=== PATIENT | female | born 1995 | race Caucasian/White ===

== ENCOUNTER 2017-01-13 21:36 | Emergency (ER) | payer SELFPAY ==
[2017-01-13] MEDS ORDERED: Ondansetron ODT 4 MG TAB ONE (23:17)
[2017-01-13 23:44] LABS: Blood, Urine Large (Negative); Clarity Cloudy (Clear); Glucose, Urine (Dipstick) Negative (Negative); Leukocyte Negative (Negative); Nitrite Negative (Negative); Protein, Urine (Dipstick) 100 mg/dL (Neg-Trace)
[2017-01-13 23:45] LABS: Bilirubin Negative (Negative); Pregnancy Test - Urine (BHCG) Negative (Negative); Specific Gravity, Urine 1.035 (1.002-1.036); pH, Urine Greater/Equal 9.0 (5.0-9.0)
[2017-01-13 23:46] LABS: Pregu Control Background? CLEAR/WHITE (CLR/WHITE); Pregu Control Bar Appear? YES (CONTROL BAR); Specific Gravity 1.035 (1.002-1.036)
[2017-01-13 23:52] LABS: Bacteria/HPF 1+ HPF (None Seen); Other Microscopic Description 1+ MUCUS; RBC/HPF GREATER THAN 50-TNTC HPF (0-3); Squamous Epithelial 0-3 HPF (0-3); WBC/HPF 0-3 HPF (0-3)
[2017-01-14] MEDS ORDERED: Ondansetron HCl/PF 4 MG/2 ML Vial ONE (00:25)
[2017-01-14 01:07] LABS: #Basophils 0.1 thou/uL (0.0-0.2); #Lymphocytes 1.3 thou/uL (1.20-3.40); #Monocytes 0.5 thou/uL (0.11-0.59); #Neutrophils 4.5 thou/uL (1.40-6.50); %Basophils 0.9 % (0.0-1.0); %Eosinophils 0.4 % (0.0-10.0); %Lymphocytes 20.4 % (21.0-51.0); %Neutrophils 70.3 % (42.0-75.0); Hemoglobin 13.1 g/dL (12.0-16.0); Mean Corpuscular HGB CONC 31.9 g/dL (32.0-36.0); Mean Corpuscular Hemoglobin 25.7 pg (27.0-31.0); Mean Corpuscular Volume 80.5 fl (81.0-99.0); Mean Platelet Volume 6.7 fL (7.4-10.4); Platelet Count 291 thou/uL (130-400); Red Blood Cell (RBC) Count 5.09 mill/uL (4.20-5.40); White Blood Cell (WBC) Count 6.4 thou/uL (4.8-10.8)
[2017-01-14 01:20] LABS: ALT (SGPT) 9 U/L (8-55); AST (SGOT) 10 U/L (5-34); Albumin 3.9 g/dL (3.5-5.0); Alkaline Phosphatase 75 U/L (40-150); Anion Gap 11 mmol/L (10-20); BUN (Urea Nitrogen) 7 mg/dL (7.0-18.7); Bilirubin, Total 0.3 mg/dL (0.2-1.2); Calc. Creatinine Clearance 0 mL/min (70-130); Calcium 8.5 mg/dL (7.8-10.44); Carbon Dioxide 27 mmol/L (22-29); Chloride 108 mmol/L (98-107); Estimated GFR-MDRD Greater than 90; Globulin 2.4 g/dL (2.4-3.5); Glucose 107 mg/dL (70-105); Potassium 4.1 mmol/L (3.5-5.1); Protein, Total 6.3 g/dL (6.0-8.3); Sodium 142 mmol/L (136-145)
[2017-01-14] MEDS ORDERED: Ketorolac Tromethamine 30 MG/ML VIAL ONE (01:20)
[2017-01-14] MEDS ORDERED: Prochlorperazine 10 MG/2 ML VIAL ONE (02:30)
--- NOTE | 2017-01-14 08:19 | CT ---
PRELIMINARY REPORT/[facility]/EMERGENCY AFTER HOURS PROCEDURE: EXAM: CT Abdomen and Pelvis Without Intravenous Contrast CLINICAL HISTORY: 21 years old, female; Signs and symptoms; Vomiting; Patient HX: Pt presents to the er for vomiting. HX of stones TECHNIQUE: Axial computed tomography images of the abdomen and pelvis without intravenous contrast. All CT scan s at this facility use one or more dose reduction techniques, viz.: automated exposure control; ma/k V adjustment per patient size (including targeted exams where dose is matched to indication; i.e. he ad); or iterative reconstruction technique. Coronal reformatted images were created and reviewed. COMPARISON: No relevant prior studies available. FINDINGS: Lower thorax: No acute findings. ABDOMEN: Liver: No acute findings. Gallbladder and bile ducts: No acute findings. No calcified stones. No ductal dilation. Pancreas: No acute findings. No ductal dilation. Spleen: No acute findings. No splenomegaly. Adrenals: No acute findings. No mass. Kidneys and ureters: No acute findings. No obstructing stones. No hydronephrosis. Stomach and bowel: No obstruction. No mucosal thickening. There is moderate colonic fecal retention. Appendix: No findings to suggest acute appendicitis. PELVIS: Bladder: No acute findings. No stones. Reproductive: Unremarkable as visualized. ABDOMEN and PELVIS: Intraperitoneal space: No acute findings. No free air. No significant fluid collection. Bones/joints: No acute fracture. No dislocation. Soft tissues: No acute findings. Vasculature: No acute findings. No abdominal aortic aneurysm. Lymph nodes: Increased number of nonenlarged mesenteric nodes, which is a nonspecific finding, but can be seen in mesenteric adenitis. IMPRESSION: Increased number of nonenlarged mesenteric nodes, which is a nonspecific finding, but can be seen in mesenteric adenitis. Normal appendix. No renal or ureteral stones. Moderate colonic fecal retention. Thank you for allowing us to participate in the care of your patient. Dictated and Authenticated by: Liv Nogueira MD 01/14/2017 2:02 AM Central Time ([place] \T\ [place]) FINAL REPORT CT ABDOMEN AND PELVIS WITHOUT CONTRAST: Date: 01/14/[address] of the abdomen and pelvis was done for evaluation of abdominal pain with nausea and vomiti ng. There is a prior history of urinary tract calculi. Axial slices were acquired, and coronal recon structions were done. FINDINGS: The lung bases are clear. The liver, spleen, pancreas, gallbladder, adrenal glands, kidneys, and abd ominal aorta all appear normal within the limitations of a noncontrast study. While there was a rod le increased density to some of the renal pyramids, no measureable calculi were seen. There is no hy dronephrosis. No ureteral calculi noted. The bowel is nondistended with no sign of obstruction. There is a moderate amount of fecal material in the colon. The number and size of mesenteric lymph nodes is slightly increased, sometimes a findi ng of mesenteric adenitis. There is no free air or free fluid. CT of the pelvis shows no pelvic masses, fluid collections, or inflammatory changes. IMPRESSION: Mild increase in mesenteric nodes. Exam otherwise unremarkable. Consider the possibility of mesenter ic adenitis. Report in agreement with preliminary reading by Loretta. POS: HOME
== END 2017-01-14 02:31 | disposition home or self-care (01) ==
LOC: BURERS 21:36
DX: K52.9 Noninfective gastroenteritis and colitis, unspecified (principal); F41.9 Anxiety disorder, unspecified; F32.9 Major depressive disorder, single episode, unspecified; F17.210 Nicotine dependence, cigarettes, uncomplicated; N12 Tubulo-interstitial nephritis, not specified as acute or chronic
CPT/HCPCS: 74176; 80053; 81003; 81015; 81025; 85025; 96361; 96374; 96375; J0780; J1885; J2405; Q0162

== ENCOUNTER 2017-01-17 18:18 | Emergency (ER) | payer BC, SELFPAY ==
[2017-01-17 19:04] LABS: #Basophils 0.1 thou/uL (0.0-0.2); #Eosinphils 0.1 thou/uL (0.0-0.7); #Lymphocytes 2.1 thou/uL (1.20-3.40); #Monocytes 0.5 thou/uL (0.11-0.59); #Neutrophils 4.1 thou/uL (1.40-6.50); %Eosinophils 1.3 % (0.0-10.0); %Lymphocytes 31.1 % (21.0-51.0); %Monocytes 7.1 % (0.0-10.0); %Neutrophils 59.5 % (42.0-75.0); Hemoglobin 13.7 g/dL (12.0-16.0); Mean Corpuscular HGB CONC 31.7 g/dL (32.0-36.0); Mean Corpuscular Hemoglobin 25.6 pg (27.0-31.0); Mean Corpuscular Volume 80.8 fl (81.0-99.0); Platelet Count 305 thou/uL (130-400); Red Blood Cell (RBC) Count 5.37 mill/uL (4.20-5.40); White Blood Cell (WBC) Count 6.8 thou/uL (4.8-10.8)
[2017-01-17 19:05] LABS: Pregnancy Test - Urine (BHCG) Negative (Negative); Pregu Control Background? CLEAR/WHITE (CLR/WHITE); Pregu Control Bar Appear? YES (CONTROL BAR); Specific Gravity 1.015 (1.002-1.036)
[2017-01-17 19:05] LABS: Bilirubin Negative (Negative); Blood, Urine Negative (Negative); Clarity Clear (Clear); Glucose, Urine (Dipstick) Negative (Negative); Leukocyte Negative (Negative); Nitrite Negative (Negative); Protein, Urine (Dipstick) Negative (Neg-Trace); Specific Gravity, Urine 1.015 (1.005-1.030); Urobilinogen 0.2 mg/dL (0.2-1.0); pH, Urine 7.5 (5.0-9.0)
[2017-01-17] MEDS ORDERED: Ondansetron HCl/PF 4 MG/2 ML Vial ONE (19:05)
[2017-01-17] MEDS ORDERED: Ketorolac Tromethamine 30 MG/ML VIAL ONE (19:05)
[2017-01-17 19:15] LABS: ALT (SGPT) 8 U/L (8-55); AST (SGOT) 11 U/L (5-34); Albumin 4.4 g/dL (3.5-5.0); Alkaline Phosphatase 92 U/L (40-150); Anion Gap 14 mmol/L (10-20); BUN (Urea Nitrogen) 6 mg/dL (7.0-18.7); Bilirubin, Total 0.4 mg/dL (0.2-1.2); Calc. Creatinine Clearance 0 mL/min (70-130); Calcium 9.1 mg/dL (7.8-10.44); Carbon Dioxide 28 mmol/L (22-29); Chloride 105 mmol/L (98-107); Estimated GFR-MDRD Greater than 90; Globulin 2.9 g/dL (2.4-3.5); Glucose 91 mg/dL (70-105); Lipase 13 U/L (8-78); Potassium 3.6 mmol/L (3.5-5.1); Protein, Total 7.3 g/dL (6.0-8.3); Sodium 143 mmol/L (136-145)
[2017-01-17] MEDS ORDERED: Promethazine HCl 25 MG/ML VIAL ONE (21:58)
== END 2017-01-17 22:53 | disposition home or self-care (01) ==
LOC: BURERS 18:18
DX: I88.0 Nonspecific mesenteric lymphadenitis (principal); F32.9 Major depressive disorder, single episode, unspecified; F41.9 Anxiety disorder, unspecified; F17.210 Nicotine dependence, cigarettes, uncomplicated; Z87.442 Personal history of urinary calculi
CPT/HCPCS: 80053; 81003; 81025; 83690; 85025; 96361; 96374; 96375; 96376; J1885; J2270; J2405; J2550

== ENCOUNTER 2017-04-06 15:43 | Emergency (ER) | payer BC ==
[2017-04-06] MEDS ORDERED: Ondansetron ODT 4 MG TAB ONE (16:10)
[2017-04-06 16:11] LABS: Bilirubin Small (Negative); Blood, Urine Negative (Negative); Clarity Cloudy (Clear); Glucose, Urine (Dipstick) Negative (Negative); Leukocyte Negative (Negative); Nitrite Negative (Negative); Protein, Urine (Dipstick) 30 mg/dL (Neg-Trace); Specific Gravity, Urine 1.025 (1.005-1.030); Urobilinogen > or = 8.0 mg/dL (0.2-1.0); pH, Urine 6.5 (5.0-9.0)
[2017-04-06 16:16] LABS: Bacteria/HPF 2+ HPF (None Seen); Pregnancy Test - Urine (BHCG) Negative (Negative); Pregu Control Background? CLEAR/WHITE (CLR/WHITE); Pregu Control Bar Appear? YES (CONTROL BAR); RBC/HPF 0-3 HPF (0-3); Specific Gravity 1.025 (1.002-1.036); Squamous Epithelial 0-3 HPF (0-3); WBC/HPF 0-3 HPF (0-3)
== END 2017-04-06 17:19 | disposition home or self-care (01) ==
LOC: BURERS 15:43
DX: R11.2 Nausea with vomiting, unspecified (principal); F41.9 Anxiety disorder, unspecified; F32.9 Major depressive disorder, single episode, unspecified; F17.210 Nicotine dependence, cigarettes, uncomplicated
CPT/HCPCS: 81003; 81015; 81025; 99284; Q0162

== ENCOUNTER 2017-07-21 17:54 | Emergency (ER) | payer BC ==
[2017-07-21] MEDS ORDERED: Ketorolac Tromethamine 30 MG/ML VIAL ONE (18:13)
[2017-07-21 18:32] LABS: #Basophils 0.2 thou/uL (0.0-0.2); #Lymphocytes 0.9 thou/uL (1.20-3.40); #Monocytes 1.8 thou/uL (0.11-0.59); #Neutrophils 11.3 thou/uL (1.40-6.50); %Basophils 1.1 % (0.0-1.0); %Eosinophils 0.2 % (0.0-10.0); %Lymphocytes 6.6 % (21.0-51.0); %Monocytes 12.5 % (0.0-10.0); %Neutrophils 79.5 % (42.0-75.0); Hemoglobin 13.9 g/dL (12.0-16.0); Mean Corpuscular HGB CONC 33.1 g/dL (32.0-36.0); Mean Corpuscular Hemoglobin 26.5 pg (27.0-31.0); Mean Corpuscular Volume 80.1 fl (81.0-99.0); Mean Platelet Volume 7.1 fL (7.4-10.4); Platelet Count 253 thou/uL (130-400); RBC Distribution Width 14.3 % (11.5-14.5); Red Blood Cell (RBC) Count 5.27 mill/uL (4.20-5.40); White Blood Cell (WBC) Count 14.2 thou/uL (4.8-10.8)
[2017-07-21 18:39] LABS: Bilirubin Negative (Negative); Blood, Urine Moderate (Negative); Clarity Cloudy (Clear); Glucose, Urine (Dipstick) Negative (Negative); Leukocyte Moderate (Negative); Nitrite Positive (Negative); Protein, Urine (Dipstick) 100 mg/dL (Neg-Trace); Urobilinogen 0.2 mg/dL (0.2-1.0)
[2017-07-21 18:41] LABS: Squamous Epithelial None Seen HPF (0-3)
[2017-07-21 18:42] LABS: Bacteria/HPF 3+ HPF (None Seen); Crystals/HPF None Seen HPF (Negative); Hyaline Casts/LPF NONE SEEN LPF (0-3 Hyaline); Other Casts/LPF None Seen LPF (0-3 Hyaline); Oval Fat Bodies/HPF None Seen HPF (None Seen); Renal Epithelial None Seen HPF (0-3); Sperm/HPF None Seen HPF (None Seen); Transitional Epithelial NONE SEEN HPF (0-3); Trichomonas/HPF None Seen HPF (None Seen); Yeast-All Forms None Seen HPF (None Seen)
[2017-07-21] MEDS ORDERED: Fentanyl 100 MCG/2 ML VIAL ONE (18:47)
[2017-07-21] MEDS ORDERED: Acetaminophen 500 MG TAB ONE (18:47)
[2017-07-21 18:51] LABS: ALT (SGPT) 32 U/L (8-55); AST (SGOT) 22 U/L (5-34); Alkaline Phosphatase 112 U/L (40-150); Anion Gap 16 mmol/L (10-20); BUN (Urea Nitrogen) 4 mg/dL (7.0-18.7); Calc. Creatinine Clearance 0 mL/min (70-130); Calcium 9.4 mg/dL (7.8-10.44); Carbon Dioxide 24 mmol/L (22-29); Chloride 99 mmol/L (98-107); Estimated GFR-MDRD Greater than 90; Globulin 3.2 g/dL (2.4-3.5); Glucose 106 mg/dL (70-105); Potassium 3.4 mmol/L (3.5-5.1); Protein, Total 7.2 g/dL (6.0-8.3); Sodium 136 mmol/L (136-145)
[2017-07-21] MEDS ORDERED: cefTRIAXone\\ROCEPHIN 2 GM VIAL ONE (19:14)
[2017-07-21 19:24] LABS: Lipase Less than 4 U/L (8-78)
[2017-07-21] MEDS ORDERED: HYDROcodone/Acetaminophen 10/325 mg Tablet ONE (19:48)
[2017-07-21] MEDS ORDERED: Ibuprofen 800 MG TAB ONE (19:48)
--- NOTE | 2017-07-21 20:54 | CT ---
CT ABDOMEN AND PELVIS WITHOUT CONTRAST 07/21/[address] of the abdomen and pelvis was performed without oral or IV contrast in a renal stone protoc ol for evaluation of bilateral flank pain. Comparison is made with the prior study dated 01/14/17. Axial slices were acquired, then coronal and s agittal reconstructions were done. The lung bases are clear except for some dependent atelectasis. The liver, spleen, pancreas, adrenal glands, gallbladder, kidneys, and abdominal aorta appear normal within the limitations of a noncontra st study. Specifically, no renal calculi or signs of obstruction were found. Previously it was mentadolfo rick about the renal pyramid seeming slightly dense. I do not appreciate that as much today. There is no distention of bowel to suggest obstruction. There are a few fluid filling loops of nondil ated small bowel, a nonspecific finding. Previously, it was mentioned that some of the mesenteric nod es were slightly more prominent than usual. Such is not the case today. There are no inflammatory jose nges around bowel. No free air or free fluid was seen. At most, there might be some mild increase in stool in the colon. CT of the pelvis suggests that there may be a 3 cm left adnexal cyst. A pelvic ultrasound would be be tter at confirming or showing this. No inflammatory changes were seen in the pelvis. There was no misael e fluid of concern or inflammatory change. IMPRESSION: 1. Possible 3 cm left adnexal cyst. 2. No evidence for urinary tract obstruction. POS: HOME
== END 2017-07-21 19:53 | disposition home or self-care (01) ==
LOC: BURERS 17:54
DX: N12 Tubulo-interstitial nephritis, not specified as acute or chronic (principal); F17.210 Nicotine dependence, cigarettes, uncomplicated
CPT/HCPCS: 74176; 80053; 81003; 81015; 83605; 83690; 85025; 87040; 87077; 87086; 87186; 96374; 96375; J0696; J1885; J3010

== ENCOUNTER 2021-07-03 20:35 | Emergency (ER) | payer OTHER, BC ==
[2021-07-03] MEDS ORDERED: AMOXicillin 250 MG CAP ONE (20:50)
[2021-07-03] MEDS ORDERED: traMADol HCl 50 MG TAB ONE (20:50)
[2021-07-03] MEDS ORDERED: Bacitracin 1 PK ONE (21:56)
== END 2021-07-03 22:11 | disposition home or self-care (01) ==
LOC: BURERS 20:35
DX: S61.210A Laceration without foreign body of right index finger without damage to nail, initial encounter (principal); S61.212A Laceration without foreign body of right middle finger without damage to nail, initial encounter; F17.210 Nicotine dependence, cigarettes, uncomplicated; W54.0XXA Bitten by dog, initial encounter; Z87.442 Personal history of urinary calculi